=== PATIENT | male | born 1980 | race Two or more races ===

== ENCOUNTER 2019-10-29 18:58 | Emergency (ER) | payer OTHER ==
[~2019-10-29] VITALS: Ht 170.2 cm; Wt 88.0 kg
[2019-10-29] MEDS ORDERED: traMADol HCL 50 MG TAB PO ONE (21:00)
[2019-10-29 21:22] VITALS: BP 139/90
== END 2019-10-29 21:05 | disposition home or self-care (01) ==
LOC: ER 18:58
DX: G43.909 Migraine, unspecified, not intractable, without status migrainosus (principal)
CPT/HCPCS: 70450